=== PATIENT | female | born 1980 | race African-American/Black ===

== ENCOUNTER 2018-04-27 09:38 | Emergency (ER) | payer MEDICAID, OTHER ==
[~2018-04-27] VITALS: Ht 162.6 cm; Wt 127.0 kg
[2018-04-27 09:40] VITALS: BP 161/89
== END 2018-04-27 13:37 | disposition home or self-care (01) ==
LOC: ER 09:49
DX: M54.9 Dorsalgia, unspecified (principal)
CPT/HCPCS: 99283